=== PATIENT | male | born 1955 | race African-American/Black ===

== ENCOUNTER 2020-07-03 12:33 | Emergency (ER) | payer MEDICARE, OTHER ==
[~2020-07-03] VITALS: Ht 198.1 cm; Wt 154.0 kg
[2020-07-03] MEDS ORDERED: APIX5TAB PO (12:44)
[2020-07-03] MEDS ORDERED: AMLO-258 PO (12:45)
[2020-07-03] MEDS ORDERED: CARV25 PO (12:45)
[2020-07-03] MEDS ORDERED: METF-960 PO (12:46)
[2020-07-03] MEDS ORDERED: INSREG SQ (12:49)
[2020-07-03 14:17] LABS: BASOPHILS % (AUTO) 0.5 % (0.0-2.0); EOSINOPHILS % (AUTO) 1.6 % (1.0-6.0); HEMATOCRIT 44.1 % (41-53); HEMOGLOBIN 14.5 g/dL (13.5-17.5); LYMPHOCYTES # (AUTO) 2.3 K/uL (1.0-4.8); MEAN CORPUSCULAR HEMOGLOBIN 28.5 pg (26.0-34.0); MEAN CORPUSCULAR HGB CONC 32.8 G/dL (31.0-37.0); MEAN CORPUSCULAR VOLUME 87 fL (80-100); MONOCYTES # (AUTO) 0.5 K/uL (0.1-1.0); NEUTROPHILS # (AUTO) 2.3 K/uL (1.8-7.7); NEUTROPHILS % (AUTO) 43.9 % (40.0-70.0); PLATELET COUNT (AUTO) 287 K/uL (150-450); RED BLOOD CELL COUNT(AUTO) 5.09 MIL/uL (4.50-5.90); RED CELL DISTRIBUTION WIDTH 13.7 % (11.5-14.5)
[2020-07-03 14:27] LABS: ANION GAP 8 mmol/L (8-16); CALCIUM, TOTAL 9.2 mg/dL (8.8-10.5); CARBON DIOXIDE 29 mmol/L (22-29); CHLORIDE 99 mmol/L (98-107); CREATININE 1.62 mg/dL (0.60-1.30); GLOMERULAR FILTR. RATE CALC 52 mL/min (>60); GLUCOSE,RANDOM 335 mg/dL (70-110); POTASSIUM 4.5 mmol/L (3.5-5.1); SODIUM SERUM 136 mmol/L (136-145); UREA NITROGEN, BLOOD 14 mg/dL (7-18)
[2020-07-03 14:32] LABS: ALANINE AMINOTRANSFERASE 20 U/L (12-78); ALKALINE PHOSPHATASE 69 U/L (46-116); ASPARTATE AMINOTRANSFERASE 12 U/L (15-37); BILIRUBIN,TOTAL 0.8 mg/dL (0.1-1.0); TOTAL PROTEIN, SERUM 8.3 g/dL (6.4-8.2)
[2020-07-03 14:38] LABS: ACETONE,BLOOD NEGATIVE (NEGATIVE)
[2020-07-03 14:39] LABS: B-TYPE NATRIURETIC PEPTIDE 102 pg/mL (0-100)
[2020-07-03 14:54] VITALS: BP 171/90
[2020-07-03] MEDS ORDERED: INSULIN REGULAR, HUMAN 100 UNITS/ML IVP ONE (15:00)
== END 2020-07-03 15:20 | disposition home or self-care (01) ==
LOC: EMS 12:33
DX: I48.91 Unspecified atrial fibrillation (principal); E11.22 Type 2 diabetes mellitus with diabetic chronic kidney disease; I12.9 Hypertensive chronic kidney disease with stage 1 through stage 4 chronic kidney disease, or unspecified chronic kidney disease; N18.9 Chronic kidney disease, unspecified; I25.10 Atherosclerotic heart disease of native coronary artery without angina pectoris; Z79.4 Long term (current) use of insulin
CPT/HCPCS: 36415; 71045; 80053; 82009; 82962; 83880; 84484; 85025; 93005; 96374; 99285; J1815

== ENCOUNTER 2024-11-26 22:55 | Inpatient (IN) | payer MEDICARE, OTHER ==
[~2024-11-26] VITALS: Ht 198.1 cm; Wt 140.0 kg
[~2024-11-26 22:55] MED LIST: AMLO-258 PO; APIX5TAB PO; CARV25 PO; INSREG SQ; METF-1211 PO
[2024-11-26] MEDS: NITROGLYCERIN 2% (1 GM=INCH) OINTMENT PACKET TP ONE (23:00)
[2024-11-26] MEDS: FUROSEMIDE 20 MG/2 ML VIAL IVP ONE (23:09)
[2024-11-26 23:14] LABS: PLATELET COUNT (AUTO) 226 K/uL (150-450); RED BLOOD CELL COUNT(AUTO) 4.59 MIL/uL (4.50-5.90); RED CELL DISTRIBUTION WIDTH 13.1 % (11.5-14.5); WHITE BLOOD COUNT (AUTO) 5.6 K/uL (4.5-11.0)
[2024-11-26 23:16] VITALS: PULSE 115; PULSE 118; RESP 30; O2SAT 97; O2SAT 98
[2024-11-26 23:26] LABS: CALCIUM, TOTAL 8.4 mg/dL (8.8-10.5); CREATININE 2.49 mg/dL (0.60-1.30); GLOMERULAR FILTR. RATE CALC 31 mL/min (>60); GLUCOSE,RANDOM 258 mg/dL (70-110); SODIUM SERUM 135 mmol/L (136-145); UREA NITROGEN, BLOOD 41 mg/dL (7-18)
[2024-11-26] MEDS ORDERED: ACETAMINOPHEN 325 MG TABLET PO PRN (23:30)
[2024-11-26] MEDS ORDERED: DEXTROSE 50%-WATER 25 GM/50 ML SYRINGE IVP PRN (23:30)
[2024-11-26 23:32] LABS: CREATINE KINASE, TOTAL ONLY 113 U/L (39-308)
[2024-11-26 23:35] LABS: TROPONIN I-HIGH SENSITIVITY 34 ng/L (<76)
[2024-11-27] VITALS (7 sets, daily range): BP systolic 110–128; BP diastolic 62–89; PULSE 69–112; RESP 17–32; TEMP 97.2–98.6; O2SAT 92–100
[2024-11-27] MEDS: INSULIN LISPRO 100 UNITS/ML SQ PRN (06:30)
[2024-11-27 06:48] LABS: CALCIUM, TOTAL 8.7 mg/dL (8.8-10.5); CREATININE 2.53 mg/dL (0.60-1.30); GLOMERULAR FILTR. RATE CALC 31.0 mL/min (>60); GLUCOSE,RANDOM 274.0 mg/dL (70-110); SODIUM SERUM 137.0 mmol/L (136-145); UREA NITROGEN, BLOOD 44.0 mg/dL (7-18)
[2024-11-27] MEDS: APIXABAN 5 MG TABLET PO SCH (08:49)
[2024-11-27] MEDS: DOCUSATE SODIUM 100 MG CAPSULE PO SCH (08:50)
[2024-11-27] MEDS: FUROSEMIDE 20 MG/2 ML VIAL IVP SCH (08:50)
[2024-11-27] MEDS: IPRATROPIUM BROMIDE 0.5 MG/2.5 ML NEB SOLUTION NEB PRN (10:22)
[2024-11-27] MEDS: ALBUTEROL SULFATE 2.5 MG/0.5 ML NEB SOLUTION NEB PRN (10:22)
[2024-11-27 11:37] LABS: TROPONIN I-HIGH SENSITIVITY 23 ng/L (<76)
[2024-11-27 11:51] LABS: PLATELET COUNT (AUTO) 237 K/uL (150-450); RED BLOOD CELL COUNT(AUTO) 4.69 MIL/uL (4.50-5.90); RED CELL DISTRIBUTION WIDTH 13.3 % (11.5-14.5); WHITE BLOOD COUNT (AUTO) 5.4 K/uL (4.5-11.0)
[2024-11-27] MEDS: SODIUM POLYSTYRENE SULFONATE 15 GM/60 ML SUSPENSION BOTTLE PO ONE (17:02)
[2024-11-27] MEDS: FUROSEMIDE 40 MG/4 ML VIAL IVP ONE (17:03)
[2024-11-27] MEDS: DEXTROSE 50%-WATER 25 GM/50 ML SYRINGE IVP ONE (18:55)
[2024-11-27] MEDS: INSULIN REGULAR, HUMAN 100 UNITS/ML IVP ONE (19:00)
[2024-11-27 21:39] LABS: CALCIUM, TOTAL 8.8 mg/dL (8.8-10.5); CREATININE 2.45 mg/dL (0.60-1.30); GLOMERULAR FILTR. RATE CALC 32.0 mL/min (>60); GLUCOSE,RANDOM 245.0 mg/dL (70-110); SODIUM SERUM 137.0 mmol/L (136-145); UREA NITROGEN, BLOOD 44.0 mg/dL (7-18)
[2024-11-27] MEDS: ATORVASTATIN CALCIUM 40 MG TABLET PO SCH (22:21)
[2024-11-28 00:19] VITALS: BP 113/86; PULSE 87; RESP 17; TEMP 97.9; O2SAT 100
[2024-11-28 04:11] LABS: GLUCOMETER DEV NAME(LOC) 5S.1E; GLUCOSE,POINT OF CARE 285 MG/DL (70-110)
[2024-11-28 04:11] LABS: GLUCOMETER DEV NAME(LOC) 5S.1E; GLUCOSE,POINT OF CARE 264 MG/DL (70-110)
[2024-11-28 04:12] LABS: GLUCOMETER DEV NAME(LOC) 5N.2C; GLUCOSE,POINT OF CARE 253 MG/DL (70-110)
[2024-11-28 04:12] LABS: GLUCOMETER DEV NAME(LOC) 5S.1E; GLUCOSE,POINT OF CARE 255 MG/DL (70-110)
[2024-11-28 04:31] VITALS: BP 115/74; PULSE 67; RESP 17; TEMP 97.7; O2SAT 100
[2024-11-28 07:58] VITALS: BP 110/64; PULSE 69; RESP 18; TEMP 97.9; O2SAT 99
[2024-11-28 12:31] LABS: GLUCOMETER DEV NAME(LOC) 5S.1E; GLUCOSE,POINT OF CARE 201 MG/DL (70-110)
[2024-11-28 12:31] LABS: GLUCOMETER DEV NAME(LOC) 5N.2C; GLUCOSE,POINT OF CARE 256 MG/DL (70-110)
[2024-11-28 15:38] VITALS: BP 135/92; PULSE 88; RESP 16; TEMP 98.2; O2SAT 100
[2024-11-28 18:11] LABS: GLUCOMETER DEV NAME(LOC) 5S.1E; GLUCOSE,POINT OF CARE 252 MG/DL (70-110)
[2024-11-28 20:00] VITALS: BP 112/96; PULSE 87; RESP 18; TEMP 97.8; O2SAT 100
[2024-11-28] MEDS: INSULIN GLARGINE,HUM.REC.ANLOG 100 UNITS/ML SQ SCH (23:15)
[2024-11-29] VITALS (8 sets, daily range): BP systolic 112–144; BP diastolic 65–100; PULSE 62–116; RESP 18–20; TEMP 98–98.4; O2SAT 97–100
[2024-11-29 06:57] LABS: PLATELET COUNT (AUTO) 226 K/uL (150-450); RED BLOOD CELL COUNT(AUTO) 4.44 MIL/uL (4.50-5.90); RED CELL DISTRIBUTION WIDTH 12.8 % (11.5-14.5); WHITE BLOOD COUNT (AUTO) 4.4 K/uL (4.5-11.0)
[2024-11-29 07:03] LABS: CALCIUM, TOTAL 8.4 mg/dL (8.8-10.5); CREATININE 2.04 mg/dL (0.60-1.30); GLOMERULAR FILTR. RATE CALC 39.0 mL/min (>60); GLUCOSE,RANDOM 223.0 mg/dL (70-110); SODIUM SERUM 137.0 mmol/L (136-145); UREA NITROGEN, BLOOD 39.0 mg/dL (7-18)
[2024-11-29] MEDS: ACETYLCYSTEINE 20% 200 MG/ML 4 ML ORAL SOLUTION PO SCH (07:09)
[2024-11-29] MEDS ORDERED: SODIUM CHLORIDE 0.9% 250 ML IV ONE (10:51)
[2024-11-29] MEDS: AMIODARONE HCL 150 MG in DEXTROSE 5%-WATER 97 ML IV ONE (11:20)
[2024-11-29] MEDS: ONDANSETRON HCL 4 MG/2 ML VIAL IVP PRN (11:36)
[2024-11-29] MEDS: AMIODARONE HCL 360 MG in DEXTROSE 5%-WATER 242.8 ML IV ONE (12:01)
[2024-11-29 12:26] LABS: GLUCOMETER DEV NAME(LOC) 5N.2C; GLUCOSE,POINT OF CARE 240 MG/DL (70-110)
[2024-11-29 12:26] LABS: GLUCOMETER DEV NAME(LOC) 5N.2C; GLUCOSE,POINT OF CARE 295 MG/DL (70-110)
[2024-11-29 12:26] LABS: GLUCOMETER DEV NAME(LOC) 5N.2C; GLUCOSE,POINT OF CARE 229 MG/DL (70-110)
[2024-11-29 15:21] LABS: APPEARANCE,URINE CLEAR (CLEAR); GLUCOSE, URINE (UA) 300-500 mg/dL (NEGATIVE); LEUKOCYTE ESTERASE ,URINE NEGATIVE (NEGATIVE); NITRATE,URINE NEGATIVE (NEGATIVE); OCCULT BLOOD,URINE NEGATIVE (NEGATIVE); SPECIFIC GRAVITIY, URINE 1.015 (1.003-1.030)
[2024-11-29 15:38] LABS: CREATININE,URINE RANDOM 191.5 mg/dL (30.0-125.0); PROTEIN,URINE RANDOM 20.0 mg/dL (0-11.9); UREA NITROGEN,URINE RANDOM 691.0 mg/dL (350-1000)
[2024-11-29] MEDS ORDERED: AMIODARONE HCL 540 MG in DEXTROSE 5%-WATER 250 ML IV ONE (17:00)
[2024-11-29] MEDS: AMIODARONE HCL 200 MG TABLET PO SCH (20:25)
[2024-11-29 20:56] LABS: GLUCOMETER DEV NAME(LOC) 5S.2D; GLUCOSE,POINT OF CARE 290 MG/DL (70-110)
[2024-11-29 20:56] LABS: GLUCOMETER DEV NAME(LOC) 5S.2D; GLUCOSE,POINT OF CARE 254 MG/DL (70-110)
[2024-11-30 00:18] VITALS: BP 101/63; PULSE 87; RESP 18; TEMP 98.2; O2SAT 98
[2024-11-30 03:23] VITALS: BP 111/88; PULSE 89; RESP 18; TEMP 98.1; O2SAT 97
[2024-11-30 06:45] LABS: GLUCOMETER DEV NAME(LOC) 5S.2D; GLUCOSE,POINT OF CARE 260 MG/DL (70-110)
[2024-11-30 06:57] LABS: PLATELET COUNT (AUTO) 223 K/uL (150-450); RED BLOOD CELL COUNT(AUTO) 4.43 MIL/uL (4.50-5.90); RED CELL DISTRIBUTION WIDTH 12.6 % (11.5-14.5); WHITE BLOOD COUNT (AUTO) 4.0 K/uL (4.5-11.0)
[2024-11-30 07:01] LABS: CALCIUM, TOTAL 8.6 mg/dL (8.8-10.5); CREATININE 2.16 mg/dL (0.60-1.30); GLOMERULAR FILTR. RATE CALC 37.0 mL/min (>60); GLUCOSE,RANDOM 267.0 mg/dL (70-110); SODIUM SERUM 137.0 mmol/L (136-145); UREA NITROGEN, BLOOD 41.0 mg/dL (7-18)
[2024-11-30 07:46] VITALS: BP 137/94; PULSE 69; RESP 18; TEMP 98.1; O2SAT 100
[2024-11-30] MEDS: FUROSEMIDE 20 MG TABLET PO SCH (09:00)
[2024-11-30] MEDS ORDERED: INSLAN SQ (10:20)
[2024-11-30] MEDS ORDERED: SYRI-590 SQ (10:20)
[2024-11-30] MEDS ORDERED: CARV-165 PO (10:20)
[2024-11-30] MEDS ORDERED: ATOR40TA71 PO (10:20)
[2024-11-30] MEDS ORDERED: AMIO200T8 PO (10:20)
[2024-11-30] MEDS ORDERED: FURO20TA4 PO (10:20)
[2024-11-30] MEDS ORDERED: APIX5TAB PO (10:20)
[2024-11-30] MEDS ORDERED: AMIODARONE HCL 750 MG in DEXTROSE 5%-WATER 485 ML IV SCH (11:00)
[2024-11-30 11:50] VITALS: BP 139/79; PULSE 67; RESP 20; TEMP 99.4; O2SAT 97
[2024-11-30 13:10] LABS: GLUCOMETER DEV NAME(LOC) 5N.2C; GLUCOSE,POINT OF CARE 282 MG/DL (70-110)
[2024-11-30 13:10] LABS: GLUCOMETER DEV NAME(LOC) 5N.2C; GLUCOSE,POINT OF CARE 328 MG/DL (70-110)
[2024-12-06] MEDS ORDERED: ATOR40TA71 PO (10:25)
== END 2024-11-30 13:00 | disposition home health service (06) | DRG 291 ==
LOC: EMS 22:55 → EDH 23:21 → 5S 11-27 02:25 → CMPBEDREQ 11-29 19:46
PROVIDERS: ADMIT Internal Medicine; ATTEND Internal Medicine
PROC: 5A09357 Assistance with Respiratory Ventilation, Less than 24 Consecutive Hours, Continuous Positive Airway Pressure (ICD-10-PCS; principal; 2024-11-26)
PROC: 5A09357 Assistance with Respiratory Ventilation, Less than 24 Consecutive Hours, Continuous Positive Airway Pressure (ICD-10-PCS; 2024-11-27)
DX: I13.2 Hypertensive heart and chronic kidney disease with heart failure and with stage 5 chronic kidney disease, or end stage renal disease (principal); I50.33 Acute on chronic diastolic (congestive) heart failure; J96.01 Acute respiratory failure with hypoxia; N17.0 Acute kidney failure with tubular necrosis; N18.6 End stage renal disease; I48.21 Permanent atrial fibrillation; E11.22 Type 2 diabetes mellitus with diabetic chronic kidney disease; I25.10 Atherosclerotic heart disease of native coronary artery without angina pectoris; E66.9 Obesity, unspecified; E78.5 Hyperlipidemia, unspecified; G47.33 Obstructive sleep apnea (adult) (pediatric); N14.11 Contrast-induced nephropathy; T50.8X5A Adverse effect of diagnostic agents, initial encounter; Y92.89 Other specified places as the place of occurrence of the external cause; Z79.4 Long term (current) use of insulin; Z79.01 Long term (current) use of anticoagulants; Z83.3 Family history of diabetes mellitus; Z87.891 Personal history of nicotine dependence; Z79.899 Other long term (current) drug therapy; Z68.35 Body mass index [BMI] 35.0-35.9, adult
CPT/HCPCS: 71045; 76770; 80048; 81001; 82550; 82570; 82962; 83036; 83735; 83880; 84156; 84300; 84443; 84484; 84540; 85025; 85379; 85610; 85730; 93005; 93306; 94640; 94660; 96374; 97116; 97162; 97166; 97535; 99291; G0378; J0282; J1815; J1938; J2405; J7050; J7060; 36415-L1; 36415-TC; J7613

== ENCOUNTER 2024-11-30 21:24 | Observation (INO) | payer MEDICARE, OTHER ==
[~2024-11-30] VITALS: Ht 190.5 cm; Wt 77.7 kg
[~2024-11-30 21:24] MED LIST changes: +AMIO200T8 PO; +ATOR40TA71 PO; +CARV-165 PO; +FURO20TA4 PO; +INSLAN SQ; +SYRI-590 SQ
[2024-11-30 21:42] LABS: PLATELET COUNT (AUTO) 258 K/uL (150-450); RED BLOOD CELL COUNT(AUTO) 4.62 MIL/uL (4.50-5.90); RED CELL DISTRIBUTION WIDTH 13.0 % (11.5-14.5); WHITE BLOOD COUNT (AUTO) 5.9 K/uL (4.5-11.0)
[2024-11-30 21:50] LABS: CALCIUM, TOTAL 9.1 mg/dL (8.8-10.5); CREATININE 2.59 mg/dL (0.60-1.30); GLOMERULAR FILTR. RATE CALC 30 mL/min (>60); GLUCOSE,RANDOM 278 mg/dL (70-110); SODIUM SERUM 137 mmol/L (136-145); UREA NITROGEN, BLOOD 42 mg/dL (7-18)
[2024-11-30 21:55] LABS: ASPARTATE AMINOTRANSFERASE 15 U/L (15-37); TOTAL PROTEIN, SERUM 7.8 g/dL (6.4-8.2)
[2024-11-30 21:57] LABS: TROPONIN I-HIGH SENSITIVITY 18 ng/L (<76)
[2024-11-30 22:00] LABS: LACTIC ACID 2.2 mmol/L (0.4-2.0)
[2024-12-01] VITALS (7 sets, daily range): BP systolic 109–145; BP diastolic 65–99; PULSE 54–87; RESP 17–21; TEMP 97.5–98.1; O2SAT 97–100
[2024-12-01 01:50] LABS: APPEARANCE,URINE CLEAR (CLEAR); GLUCOSE, URINE (UA) 300-500 mg/dL (NEGATIVE); LEUKOCYTE ESTERASE ,URINE NEGATIVE (NEGATIVE); NITRATE,URINE NEGATIVE (NEGATIVE); OCCULT BLOOD,URINE NEGATIVE (NEGATIVE); SPECIFIC GRAVITIY, URINE 1.020 (1.003-1.030)
[2024-12-01 02:18] LABS: SQUAMOUS EPITHELIAL CELL,UR Rare /LPF (None Seen)
[2024-12-01] MEDS ORDERED: MAGNESIUM HYDROXIDE SUSPENSION 30 ML UDCUP PO PRN (04:00)
[2024-12-01] MEDS ORDERED: ZOLPIDEM TARTRATE 5 MG TABLET PO PRN (04:00)
[2024-12-01] MEDS ORDERED: MORPHINE SULFATE 4 MG/ML SYRINGE IVP PRN (04:00)
[2024-12-01] MEDS ORDERED: ONDANSETRON HCL 4 MG/2 ML VIAL IVP PRN (04:00)
[2024-12-01] MEDS ORDERED: IPRATROPIUM BROMIDE 0.5 MG/2.5 ML NEB SOLUTION NEB PRN (04:00)
[2024-12-01] MEDS ORDERED: ALBUTEROL SULFATE 2.5 MG/0.5 ML NEB SOLUTION NEB PRN (04:00)
[2024-12-01] MEDS ORDERED: HYDROCODONE/ACETAMINOPHEN 5-325 MG TABLET PO PRN (04:00)
[2024-12-01] MEDS ORDERED: ACETAMINOPHEN 325 MG TABLET PO PRN (04:00)
[2024-12-01] MEDS ORDERED: BISACODYL 10 MG RECTAL RECTAL SUPPOSITORY PR PRN (04:00)
[2024-12-01] MEDS: INSULIN GLARGINE,HUM.REC.ANLOG 100 UNITS/ML SQ SCH (06:55)
[2024-12-01] MEDS: PANTOPRAZOLE SODIUM 40 MG DR TABLET PO SCH (09:31)
[2024-12-01] MEDS: AMIODARONE HCL 200 MG TABLET PO SCH (09:31)
[2024-12-01] MEDS: APIXABAN 5 MG TABLET PO SCH (09:31)
[2024-12-01] MEDS: DOCUSATE SODIUM 100 MG CAPSULE PO SCH (09:31)
[2024-12-01] MEDS: FUROSEMIDE 20 MG/2 ML VIAL IVP SCH (09:31)
[2024-12-01 15:21] LABS: GLUCOMETER DEV NAME(LOC) 5N.1D; GLUCOSE,POINT OF CARE 245 MG/DL (70-110)
[2024-12-01 15:21] LABS: GLUCOMETER DEV NAME(LOC) 5S.1E; GLUCOSE,POINT OF CARE 241 MG/DL (70-110)
[2024-12-01 17:10] LABS: FRACTIONATED INSPIRED OXYGEN 21.0 % (21-100.0); SOURCE, BLOOD GAS ARTERIAL; TEMPERATURE, FAHRENHEIT, BG 98.1 FAHREN (96.0-98.6)
[2024-12-01 17:42] LABS: ABG BASE EXCESS -3.1 mmol/L (-2.0-3.0); ABG CARBOXYHEMOGLOBIN 0.3 % (0.5-1.5); ABG HCO3 22.4 mmol/L (21.0-28.0); ABG METHEMOGLOBIN 0.1 % (0.0-1.5); ABG OXYGEN CONTENT 19.7 mL/dL (15.0-23.0); ABG OXYGEN SATURATION 96.3 % (94.0-98.0); ABG OXYHEMOGLOBIN 95.9 % (94.0-98.0); ABG PCO2 36 mmHg (32.0-48.0); ABG PH 7.402 (7.350-7.450); ABG TOTAL HEMOGLOBIN 14.6 G/dL (13.5-17.5); PO2, ARTERIAL BG 82.8 mmHg (83.0-108.0); SITE, BLOOD GAS LFT BRACHIAL
[2024-12-01 17:43] LABS: ABG A-A DIFF O2 24.6 mmHg (10-20.0); O2 DEVICE,BLOOD GAS ROOM AIR (ROOM AIR)
[2024-12-01] MEDS ORDERED: DEXTROSE 50%-WATER 25 GM/50 ML SYRINGE IVP PRN (18:45)
[2024-12-01] MEDS: INSULIN LISPRO 100 UNITS/ML SQ PRN (19:03)
[2024-12-01] MEDS: ATORVASTATIN CALCIUM 40 MG TABLET PO SCH (21:01)
[2024-12-01 21:51] LABS: GLUCOMETER DEV NAME(LOC) 5N.1D; GLUCOSE,POINT OF CARE 275 MG/DL (70-110)
[2024-12-01 21:51] LABS: GLUCOMETER DEV NAME(LOC) 5N.1D; GLUCOSE,POINT OF CARE 344 MG/DL (70-110)
[2024-12-02 05:38] VITALS: BP 124/77; PULSE 87; RESP 20; O2SAT 99
[2024-12-02 05:56] LABS: GLUCOMETER DEV NAME(LOC) 5N.1D; GLUCOSE,POINT OF CARE 250 MG/DL (70-110)
[2024-12-02 06:06] LABS: PLATELET COUNT (AUTO) 245 K/uL (150-450); RED BLOOD CELL COUNT(AUTO) 4.46 MIL/uL (4.50-5.90); RED CELL DISTRIBUTION WIDTH 12.5 % (11.5-14.5); WHITE BLOOD COUNT (AUTO) 4.4 K/uL (4.5-11.0)
[2024-12-02 06:19] LABS: CALCIUM, TOTAL 8.8 mg/dL (8.8-10.5); CREATININE 2.13 mg/dL (0.60-1.30); GLOMERULAR FILTR. RATE CALC 37.0 mL/min (>60); GLUCOSE,RANDOM 245.0 mg/dL (70-110); SODIUM SERUM 138.0 mmol/L (136-145); UREA NITROGEN, BLOOD 40.0 mg/dL (7-18)
[2024-12-02] MEDS: EMPAGLIFLOZIN 10 MG TABLET PO SCH (08:41)
[2024-12-02] MEDS: FUROSEMIDE 20 MG TABLET PO SCH (08:41)
[2024-12-02 08:49] VITALS: BP 118/84; PULSE 83; RESP 16; TEMP 98; O2SAT 100
[2024-12-02 10:21] LABS: GLUCOMETER DEV NAME(LOC) 5S.1E; GLUCOSE,POINT OF CARE 285 MG/DL (70-110)
[2024-12-02 12:15] VITALS: BP 130/97; PULSE 79; RESP 17; TEMP 97.9; O2SAT 100
[2024-12-02 17:50] LABS: GLUCOMETER DEV NAME(LOC) 5S.1E; GLUCOSE,POINT OF CARE 284 MG/DL (70-110)
[2024-12-06] MEDS ORDERED: ATOR40TA71 PO (10:25)
== END 2024-12-02 14:10 | disposition home or self-care (01) ==
LOC: EMS 21:24 → INTOOBSV 23:48 → EDH 23:48 → 5N 12-01 02:01
PROVIDERS: ADMIT Internal Medicine; ATTEND Internal Medicine
DX: J96.21 Acute and chronic respiratory failure with hypoxia (principal); I13.0 Hypertensive heart and chronic kidney disease with heart failure and stage 1 through stage 4 chronic kidney disease, or unspecified chronic kidney disease; E11.22 Type 2 diabetes mellitus with diabetic chronic kidney disease; I50.43 Acute on chronic combined systolic (congestive) and diastolic (congestive) heart failure; N18.9 Chronic kidney disease, unspecified; I48.91 Unspecified atrial fibrillation; G47.33 Obstructive sleep apnea (adult) (pediatric); J44.9 Chronic obstructive pulmonary disease, unspecified; N17.9 Acute kidney failure, unspecified; I25.10 Atherosclerotic heart disease of native coronary artery without angina pectoris; Z79.4 Long term (current) use of insulin; Z79.01 Long term (current) use of anticoagulants; Z79.84 Long term (current) use of oral hypoglycemic drugs
CPT/HCPCS: 80048 ×2; 80076; 83605; 83880; 84484; 85025 ×2; 85379; 87040; 36415 ×2; 71045; 99285; 93005; 96374; 81001; 82962 ×2; 87081; 82805; 94660; 96376; 99219; J1938; J1815 ×2; 94760; G0378